=== PATIENT | male | born 1955 | race American Indian/Alaskan Native ===

== ENCOUNTER 2016-07-22 01:30 | Emergency (ER) | payer OTHER ==
[2016-07-22 01:41] VITALS: BP 145/81; PULSE 59; RESP 17; TEMP 97.5; O2SAT 98
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
== END 2016-07-22 03:52 | disposition home or self-care (01) ==
LOC: H.ER 01:30
DX: S39.012A Strain of muscle, fascia and tendon of lower back, initial encounter (principal); V44.5XXA Car driver injured in collision with heavy transport vehicle or bus in traffic accident, initial encounter; Y92.410 Unspecified street and highway as the place of occurrence of the external cause
CPT/HCPCS: 72100; 96372; 99281; J1885